=== PATIENT | female | born 1995 | race Caucasian/White ===

== ENCOUNTER 2019-05-27 21:27 | Emergency (ER) | payer OTHER ==
[2019-05-27 21:53] VITALS: BP 113/78
[2019-05-27] MEDS ORDERED: Amoxicillin/Clavulanate TAB* 875 MG PO ONE (22:35)
--- NOTE | 2019-05-27 22:42 | UC ---
Respiratory Complaint HPI - HPI Summary HPI Summary: 10 DAYS OF SINUS PRESSURE, LEFT-SIDED FACIAL PAIN, LEFT EAR PAIN/MUTED HEARING, POSTNASAL DRAINAGE, FEVER, COUGH, HEADACHE. SYMPTOMS NOT IMPROVING. - History of Current Complaint Chief Complaint: UCGeneralIllness Stated Complaint: EARACHE,CONGESTED Time Seen by Provider: 05/27/19 22:08 Hx Obtained From: Patient Hx Last Menstrual Period: today Onset/Duration: Gradual Onset, Lasting Days, Still Present Timing: Constant Severity Initially: Moderate Severity Currently: Moderate Pain Intensity: 7 Pain Scale Used: 0-10 Numeric Character: Cough: Nonproductive Aggravating Factors: Nothing Alleviating Factors: Nothing Associated Signs And Symptoms: Positive: Fever, Chills, URI, Nasal Congestion, Sinus Discomfort. Negative: Dyspnea, Wheezing - Allergies/Home Medications Allergies/Adverse Reactions: Allergies Allergy/AdvReac Type Severity Reaction Status Date / Time diphenhydramine Allergy Severe OUT OF Verified 05/27/19 21:53 [From Benadryl] BODY, WORSENING OF RASH Home Medications: Home Medications Levonorgestrel (Iud) [Mirena IUD] 1 unit VAGINAL DAILY 05/27/19 [History Confirmed 05/27/19] Sertraline* [Zoloft*] 1 tab PO BEDTIME 05/27/19 [History Confirmed 05/27/19] PMH/Surg Hx/FS Hx/Imm Hx GI/ History: Gastroesophageal Reflux - Surgical History Surgical History: Yes Surgery Procedure, Year, and Place: tonsils and ADNOIDS 2007 - Family History Known Family History: Positive: Non-Contributory - Social History Alcohol Use: None Substance Use Type: None Smoking Status (MU): Never Smoked Tobacco Review of Systems All Other Systems Reviewed And Are Negative: Yes Constitutional: Positive: Fever, Fatigue ENT: Positive: Ear Ache, Nasal Discharge, Sinus Congestion, Sinus Pain/ Tenderness Respiratory: Positive: Cough Cardiovascular: Positive: Negative Gastrointestinal: Positive: Negative Musculoskeletal: Negative: Myalgia Neurological: Positive: Headache Physical Exam Triage Information Reviewed: Yes Appearance: Well-Appearing, No Pain Distress, Well-Nourished Vital Signs: Initial Vital Signs Temp 98.2 F 05/27/19 21:47 Pulse 70 05/27/19 21:47 Resp 16 05/27/19 21:47 BP 113/78 05/27/19 21:47 Pulse Ox 99 05/27/19 21:47 Vital Signs Reviewed: Yes Eyes: Positive: Conjunctiva Clear ENT: Positive: Hearing grossly normal, Pharynx normal, Sinus tenderness, Other - RIGHT TM NORMAL. LEFT TM DULL, ERYTHEMATOUS Neck: Positive: Supple, Nontender, No Lymphadenopathy Respiratory Exam: Normal Cardiovascular Exam: Normal Abdomen Description: Positive: Soft Musculoskeletal: Positive: No Edema Neurological: Positive: Alert Psychological: Positive: Age Appropriate Behavior Skin: Negative: Rashes Respiratory Course/Dx - Course Course Of Treatment: SYMPTOMS SUGGESTIVE OF ACUTE BACTERIAL RHINOSINUSITIS. GIVEN THAT SHE ALSO HAS A LEFT OTITIS MEDIA WILL COVER WITH AUGMENTIN TWICE DAILY FOR 10 DAYS. REST, HYDRATE, OTC MEDS NEEDED. FOLLOW-UP IF NOT IMPROVING EXPECTED. DIFLUCAN FOR PATIENT TO USE IF SHE DEVELOPS ANY SYMPTOMS OF YEAST INFECTION. - Differential Dx/Diagnosis Provider Diagnosis: Acute rhinosinusitis, Left acute otitis media Discharge ED - Sign-Out/Discharge Documenting (check all that apply): Patient Departure All imaging exams completed and their final reports reviewed: No Studies - Discharge Plan Condition: Stable Disposition: HOME Prescriptions: Amoxicillin/Clavulanate TAB* [Augmentin TAB 875*] 875 mg PO BID #19 tab Fluconazole 150 MG (NF) [Diflucan 150 mg (NF)] 150 mg PO ONCE #2 tab Patient Education Materials: Ear Infection (ED), Rhinosinusitis (ED) Referrals: Denilson RASHEED,Jorden Godinez [Primary Care Provider] - If Needed Additional Instructions: YOUR RESPIRATORY SYMPTOMS MAY BE VIRALLY MEDIATED BUT GIVEN THE LENGTH OF TIME YOU HAVE BEEN ILL WE WILL COVER YOU WITH ANTIBIOTICS. TAKE THE MEDICINE FOR THE FULL COURSE. REST, HYDRATE, OTC MEDS NEEDED. THE AUGMENTIN WILL ALSO COVER YOUR LEFT SIDED EAR INFECTION. SEEK FOLLOW-UP WITH YOUR PCP IF YOU ARE NOT IMPROVING OVER THE NEXT 1-2 WEEKS. USE OTC AFRIN FOR NASAL CONGESTION IF NEEDED. 2 SPRAYS IN EACH NOSTRIL TWICE DAILY NEEDED. DO NOT USE FOR MORE THAN 3-4 DAYS IN A ROW TO PREVENT DEVELOPING REBOUND CONGESTION. - Billing Disposition and Condition Condition: STABLE Disposition: Home
== END 2019-05-27 22:48 | disposition home or self-care (01) ==
LOC: UCEAST 21:27
DX: J01.90 Acute sinusitis, unspecified (principal); H66.92 Otitis media, unspecified, left ear; R05 Cough; R53.83 Other fatigue; Z88.8 Allergy status to other drugs, medicaments and biological substances
CPT/HCPCS: 99212; A9270-GY; G0463